=== PATIENT | female | born 1995 | race Two or more races ===

== ENCOUNTER 2021-07-17 20:39 | Emergency (ER) | payer OTHER ==
[~2021-07-17] VITALS: Ht 167.6 cm; Wt 56.7 kg
[2021-07-17 21:50] VITALS: BP 113/83
== END 2021-07-17 23:47 | disposition home or self-care (01) ==
LOC: ER 20:39
DX: F41.9 Anxiety disorder, unspecified (principal); F41.0 Panic disorder [episodic paroxysmal anxiety]
CPT/HCPCS: 93005